=== PATIENT | female | born 1955 | race Caucasian/White ===

== ENCOUNTER 2025-02-19 09:23 | Day surgery (SDC) | payer MEDICARE ==
[2025-02-18 09:11] VITALS: BMI 27.3
[~2025-02-19 09:23] MED LIST: Bupivacaine/Epinephrine 0.25% 30 ML VIAL ONE; CEFAZOLIN 2 GM VIAL ONE
[2025-02-19] MEDS ORDERED: LevoFLOXacin D5W 500 mg (100 mL) BAG ONE (09:47)
== END 2025-02-19 11:15 | disposition home or self-care (01) ==
LOC: CSHSDC 09:23
PROVIDERS: ATTEND Surgery
PROC: 0JH60WZ Insertion of Totally Implantable Vascular Access Device into Chest Subcutaneous Tissue and Fascia, Open Approach (ICD-10-PCS; principal; 2025-02-19)
DX: C18.5 Malignant neoplasm of splenic flexure (principal); Z88.0 Allergy status to penicillin
CPT/HCPCS: 36561; C1788; J1642; J1956; J2250; J2704